=== PATIENT | female | born 1970 | race Asian ===

== ENCOUNTER 2018-12-11 06:36 | Day surgery (SDC) | payer OTHER ==
[~2018-12-11] VITALS: Ht 154.9 cm; Wt 52.0 kg
[2018-12-11 07:32] VITALS: Ht 154.9 cm; Wt 52.0 kg
[2018-12-11 07:41] VITALS: BP 155/83; PULSE 80; RESP 12
--- NOTE | 2018-12-11 08:31 | PREAC ---
Date/Time of Note Date/Time of Note DATE: 12/11/18 TIME: 08:29 Anesthesia Eval and Record Evaluation Time Pre-Procedure Interview DATE: 12/11/18 TIME: 08:29 Age 48 Sex female NPO: 8 hrs Preoperative diagnosis DYSPHAGIA Planned procedure EGD Past Medical History Past Medical History: Includes Cardio: Dyslipidemia Pulm: Other (RIGHT LUNG MASS) Surgery & Anesthesia Issues No known issue Meds Anticoagulation: No Beta Zackary within 24 hr: No Reason Beta Zackary not given: Pt. not on B-Zackary Meds reviewed: Yes Allergies Allergies Reviewed: Yes Labs/Studies Labs Reviewed: Reviewed by anesthesiologist test: Negative Pre-procedure Exam Last vitals Vital Signs Date Temp Pulse Resp B/P (MAP) Pulse Ox O2 O2 Flow FiO2 Time Delivery Rate 12/11/18 99.3 80 12 155/83 99 Room Air 07:41 (107) Airway: Adequate mouth opening, Adequate thyromental dist Mallampati: Mallampati I Teeth: Normal Lung: Normal Heart: Normal ASA Physical Status ASA physical status: 2 Emergency: None Planned Anesthetic General/MAC: MAC Planned Pain Management Parenteral pain med Pre-operative Attestations Prior to commencing anesthesia and surgery, the patient was re-evaluated, there was verification of: *The patient's identity *The results of appropriate recent lab work and preoperative vital signs *The above evaluation not changing prior to induction *Anesthetic plan, risk benefits, alternative and complications discussed with patient/family; questions answered; patient/family understands, accepts and wishes to proceed. LUCIA GILL Dec 11, 2018 08:31
[2018-12-11] MEDS ORDERED: LIDOCAINE 2% (SDV) 5 ML INJ ONE (08:36)
[2018-12-11] MEDS ORDERED: PROPOFOL 40 ML ONE (08:36)
[2018-12-11] MEDS ORDERED: SIMVASTATIN (08:45)
[2018-12-11] MEDS ORDERED: THERAFLU (08:45)
--- NOTE | 2018-12-11 08:58 | PAC ---
Date/Time of Note Date/Time of Note DATE: 12/11/18 TIME: 08:58 Post-Anesthesia Notes Post-Anesthesia Note Last documented vital signs Vital Signs Date Temp Pulse Resp B/P (MAP) Pulse Ox O2 O2 Flow FiO2 Time Delivery Rate 12/11/18 99.3 80 12 155/83 99 Room Air 0858 (107) Activity: WNL Respiratory function: WNL Cardiovascular function: WNL Mental status: Baseline Pain reasonably controlled: Yes Hydration appropriate: Yes Nausea/Vomiting absent: Yes LUCIA GILL Dec 11, 2018 08:58
[2018-12-11] MEDS ORDERED: EPHEDrine SULFATE 50 MG/5 ML SYG IV PRN (09:00)
[2018-12-11] MEDS ORDERED: ONDANSETRON 4 MG INJ IV PRN (09:00)
[2018-12-11] MEDS ORDERED: FENTAnyl 50 MCG/ML VIAL IV PRN (09:00)
[2018-12-11] MEDS ORDERED: LABETALOL HCL 20MG INJ IV PRN (09:00)
[2018-12-11] MEDS ORDERED: hydrALAzine 20 MG INJ IV PRN (09:00)
[2018-12-11 09:20] VITALS: BP 125/75; RESP 16
== END 2018-12-11 12:14 | disposition home or self-care (01) ==
LOC: GIL 06:36
PROVIDERS: ATTEND Internal Medicine Gastroenterology
DX: K29.50 Unspecified chronic gastritis without bleeding (principal); D13.0 Benign neoplasm of esophagus; E78.5 Hyperlipidemia, unspecified
CPT/HCPCS: 43239; 84703; 88305; 88312; Z7610